=== PATIENT | male | born 1985 | race Caucasian/White ===

== ENCOUNTER 2018-07-29 18:03 | Emergency (ER) | payer SELFPAY ==
[~2018-07-29] VITALS: Ht 170.2 cm; Wt 82.0 kg
[~2018-07-29 18:03] MED LIST: ALBU8.5H8 INH; DOCU-144 PO; HYDR30CR75 PR; ONDA4TAB35 PO; PRED20TA PO
[2018-07-29 18:11] VITALS: BP 160/75; PULSE 70; RESP 18; Ht 170.2 cm; Wt 82.0 kg
== END 2018-07-29 21:44 | disposition left against medical advice (07) ==
LOC: FTE 18:03
DX: Z53.21 Procedure and treatment not carried out due to patient leaving prior to being seen by health care provider (principal)

== ENCOUNTER 2018-12-19 14:03 | Emergency (ER) | payer OTHER ==
[~2018-12-19] VITALS: Ht 175.3 cm; Wt 86.6 kg
[~2018-12-19 14:03] MED LIST changes: +AZIT250T PO; +IBUP-1542 PO; +NPH10OT LEFT EAR
[2018-12-19 14:04] VITALS: BP 131/80; PULSE 67; RESP 18; Ht 175.3 cm; Wt 86.6 kg
--- NOTE | 2018-12-19 14:15 | ERD ---
ER Documentation Chief Complaint Chief Complaint LEFT EAR PAIN X4 DAYS HPI 33-year-old male, previously healthy, presents the emergency department, complaining of 4 days with progressive left ear pain. The patient denies fever, no chills, no headache, no neck stiffness, no hearing loss. The patient has been taking Tylenol with mild improvement of the symptoms. ROS All systems reviewed and are negative except as per history of present illness. Medications Home Meds Active Scripts Ibuprofen* (Motrin*) 600 Mg Tab, 600 MG PO Q6H PRN for PAIN AND OR ELEVATED TEMP, #20 TAB Prov:BRITTNEY WESTON MD 12/19/18 Neomycin/Polymyxin/Hydrocort* (Cortisporin* Otic) 10 Ml Susp, 4 DROP LEFT EAR QID for 7 Days, EA Prov:BRITTNEY WESTON MD 12/19/18 Azithromycin* (Zithromax*) 250 Mg Tablet, 250 MG PO .ZPACK DIRECTED, #6 TAB TAKE 500 MG (2 TABS) THE FIRST DAY THEN 250 MG (1 TAB) DAYS 2-5 Prov:BRITTNEY WESTON MD 12/19/18 Docusate Sodium* (Colace*) 100 Mg Capsule, 100 MG PO TID, #30 CAP Prov:JAMA RING 03/21/16 Hydrocortisone Acetate* (Anusol-HC*) 30 Gm Cream.gm., 1 APPLIC NM BID for 3 Days, TUB Prov:JAMA RING 03/21/16 Albuterol Sulfate* (Proair HFA*) 8.5 Gm Hfa.aer.ad, 2 PUFF INH Q4, #1 INHALER Prov:KRISTI BONILLA PA-C 06/21/15 Prednisone* (Prednisone*) 20 Mg Tab, 40 MG PO DAILY for 4 Days, TAB Prov:KRISTI BONILLA PA-C 06/21/15 Ondansetron Hcl* (Zofran* ODT) 4 mg -ODT Tab.disper, 4 MG PO Q6H PRN for NAUSEA, #20 TAB Prov:GIACOMO MAURER 07/31/14 Allergies Allergies: Coded Allergies: No Known Allergy (Unverified , 06/21/15) PMhx/Soc Medical and Surgical Hx: pt denies Medical Hx History of Surgery: No Anesthesia Reaction: No Hx Neurological Disorder: No Hx Respiratory Disorders: No Hx Cardiac Disorders: No Hx Psychiatric Problems: No Hx Miscellaneous Medical Probl: No Hx Alcohol Use: No Hx Substance Use: No Hx Tobacco Use: No FmHx Family History: No diabetes, No coronary disease Physical Exam Vitals Vital Signs Date Temp Pulse Resp B/P (MAP) Pulse Ox O2 O2 Flow FiO2 Time Delivery Rate 12/19/18 98.2 67 18 131/80 98 14:04 (97) Physical Exam Patient alert, oriented, vital signs stable. HEENT: Normocephalic, atraumatic. EYES: PERRLA, EOMI, Sclera and conjunctiva appear normal. EARS: Left ear with significant tympanic membrane erythema, retraction and opacity with edema of the canal. Contralateral ear normal. No mastoid tenderness THROAT: Erythematous oropharynx. NECK: Supple, No lymphadenopathy. Full ROM without pain or tenderness. HEART: RRR, no rubs, murmurs, clicks or gallops. LUNGS: Clear to auscultation. ABDOMEN: Soft, non-tender without masses or hepatosplenomegaly. EXTREMITIES: No edema bilaterally. BACK: Full ROM, no deformity, normal back exam NEURO: Cranial nerves grossly intact, no motor or sensory deficit Procedures/MDM Vital signs stable, differential diagnosis include but not limited to: infection bacterial/viral/fungal. Tonsillitis, eustachian dysfunction, allergies, foreign body, cholesteatoma. Less likely mastoiditis, malignant otitis, meningitis. Physical examination and clinical presentation consistent most likely with left otitis media. During the ED course the patient remained stable, no new complaints. Clinical impression discussed with the patient who agrees with management. The patient is stable to be treated outpatient and will be discharged home with a Rx for antibiotics and ibuprofen. Some side effects of prescribed medications (headache, rash, nausea, vomiting, diarrhea, interactions with other medications) were reviewed. The patient was instructed to follow up with the primary care provider in the next 48h. If symptoms persist, worsen or new symptoms develop, then patient should return to the ED immediately. Disclaimer: Inadvertent spelling and grammatical errors are likely due to EHR/dictation software use and do not reflect on the overall quality of patient care. Also, please note that the electronic time recorded on this note does not necessarily reflect the actual time of the patient encounter. Departure Diagnosis: Primary Impression: Left otitis media Condition: Stable Additional Instructions: Thank you very much for allowing us to participate in your care. Your health and safety is our top priority at [facility]. The evaluation in the emergency department has been done to rule out an acute emergency. Chronic, [id number] conditions may have not been evaluated; therefore, you need to follow up with a primary care provider in the next 48h. If symptoms persist, worsen or new symptoms develop, then patient should return to the ED immediately. Call your primary care doctor TOMORROW for an appointment during the next 2-4 d ays and bring all the information provided. Have prescriptions filled and follow precisely the directions on the label. If the symptoms get worse and your provider is unavailable, return to the Emergency Department immediately. BRITTNEY WESTON MD Dec 19, 2018 14:15
== END 2018-12-19 14:20 | disposition home or self-care (01) ==
LOC: E/R 14:03
DX: H66.92 Otitis media, unspecified, left ear (principal)
CPT/HCPCS: 99283

== ENCOUNTER 2019-01-16 06:56 | Emergency (ER) | payer OTHER ==
[~2019-01-16] VITALS: Ht 165.1 cm; Wt 81.1 kg
[~2019-01-16 06:56] MED LIST changes: +BENZ1LOZ49 MM; +CYCL10TA7 PO; +METH35.4 TP; +NAPR-985 PO; +NEOM14.24 TP
[2019-01-16 06:59] VITALS: PULSE 81; RESP 18; Ht 165.1 cm; Wt 81.1 kg
[2019-01-16] MEDS ORDERED: KETOROLAC 60 MG INJ IM STA (07:23)
== END 2019-01-16 07:42 | disposition home or self-care (01) ==
LOC: FTE 06:56
DX: M54.9 Dorsalgia, unspecified (principal); J45.909 Unspecified asthma, uncomplicated
CPT/HCPCS: 96372; J1885; Z7502